=== PATIENT | female | born 1950 | race Caucasian/White ===

== ENCOUNTER 2022-10-30 08:46 | Inpatient (IN) | payer MEDICARE, OTHER ==
[~2022-10-30] VITALS: Ht 182.9 cm; Wt 150.0 kg
[2022-10-30 10:26] LABS: APTT 33 SECONDS (22-32); INR 1.4 INR; PROTHROMBIN TIME 14.6 SECONDS (9.0-12.0)
[2022-10-30 10:28] LABS: ALANINE AMINOTRANSFERASE 30 U/L (12-78); ALBUMIN 2.1 G/DL (3.4-5.0); ALBUMIN/GLOBULIN RATIO 0.4 (1.1-1.5); ALKALINE PHOSPHATASE 237 IU/L (46-116); ASPARTATE AMINO TRANSFERASE 58 U/L (10-37); BILIRUBIN,TOTAL 0.8 MG/DL (0.1-1.0); CALCIUM 8.9 MG/DL (8.5-10.1); TOTAL CARBON DIOXIDE 25.5 MMOL/L (24-32); TOTAL PROTEIN 7.7 G/DL (6.4-8.2)
[2022-10-30 10:37] LABS: LIPASE 81 U/L (73-393); MAGNESIUM 1.8 MG/DL (1.5-2.4); PRO BRAIN NATRIURETIC PEPTIDE 1695 PG/ML (0-125)
[2022-10-30 10:41] LABS: ANION GAP 12 (8-16); BLOOD UREA NITROGEN 23 MG/DL (7-18); BUN/CREATININE RATIO 18.3 (10.0-20.0); C-REACTIVE PROTEIN 26.47 MG/DL (0.0-0.5); CHLORIDE 96 MMOL/L (99-107); CREATININE 1.26 MG/DL (0.40-0.90); GLUCOSE 98 MG/DL (70-104); PHOSPHORUS 3.7 MG/DL (2.3-4.5); POTASSIUM 3.8 MMOL/L (3.5-5.1); SODIUM 133 MMOL/L (135-145); eCRCL 46 ML/MIN; eGFR 42 ML/MIN
[2022-10-30 10:55] LABS: D-DIMER > 35.20 MG/L FEU (0-0.50)
[2022-10-30 11:00] LABS: BASOPHILS % (AUTO) 0.2 % (0-1); EOSINOPHILS % (AUTO) 0.1 % (0-6); HEMATOCRIT 39.2 % (35.0-45.0); HEMOGLOBIN 12.8 g/dl (12.0-16.0); LYMPHOCYTES # (AUTO) 0.3 X10'3 (1.1-4.8); LYMPHOCYTES % (AUTO) 2.3 % (21-51); MEAN CORPUSCULAR HEMOGLOBIN 28.3 PG (27.0-31.0); MEAN CORPUSCULAR HGB CONC 32.7 g/dL (33.0-36.5); MEAN CORPUSCULAR VOLUME 86.5 FL (78-98); MONOCYTES # (AUTO) 0.2 X10'3 (0-0.9); MONOCYTES % (AUTO) 1.4 % (2-12); PLATELET COUNT 158 X10'3 (140-440); RED BLOOD COUNT 4.53 X10'6 (4.20-5.60); RED CELL DISTRIBUTION WIDTH 15.3 % (11.5-14.5); WHITE BLOOD COUNT 11.5 X10'3 (4.5-11.0)
[2022-10-30 11:16] LABS: PLATELET ESTIMATE NORMAL; TOTAL CELLS COUNTED 100
[2022-10-30] MEDS ORDERED: iohexol 350MG/ML 100ml bottle IV ONE (11:31)
[2022-10-30] MEDS ORDERED: normal saline 1000ML IV soln IVB ONE (11:45)
--- NOTE | 2022-10-30 12:16 | NUR ---
lunch relief rn received report from susan rn assuming care at present time. pt returned from radiology via [facility] monitor leads on and functioning. x2 liters ns infusing via pressure bag. pt declined straight cath risks and benefits discussed " i will think about it maybe later but not now"
--- NOTE | 2022-10-30 13:06 | NUR ---
critical lab lactic 4.0 @ 1397
[2022-10-30] MEDS ORDERED: CefTRIAXone 2gm/D5W 50ml BAG 50 ML IV ONE (14:10)
[2022-10-30] MEDS ORDERED: normal saline 1000ML IV soln IV ONE (14:20)
[2022-10-30] MEDS ORDERED: acetaminophen 325mg tablet PO ONE (14:20)
[2022-10-30 14:32] LABS: BILIRUBIN,URINE NEGATIVE (Neg); CLARITY,URINE CLOUDY (Clear); COLOR,URINE YELLOW (Yellow); GLUCOSE, URINE NEGATIVE (Neg); KETONES,URINE TRACE mg/dl (Neg); LEUKOCYTE ESTERASE ,URINE MODERATE (Neg); NITRITES, URINE POSITIVE (Neg); OCCULT BLOOD,URINE MODERATE (Neg); PROTEIN,URINE 30 mg/dl (Neg)
[2022-10-30 14:52] LABS: UA COLLECTION TYPE OTHER
[2022-10-30 14:53] LABS: WBC,URINE TNTC /HPF (0-4)
[2022-10-30 14:54] LABS: BACTERIA,URINE 4+ /HPF (Neg); MUCUS STRANDS NONE SEEN /LPF (Neg); SQUAMOUS EPITHELIAL CELL,UR MODERATE /LPF (FEW)
[2022-10-30] MEDS ORDERED: potassium Cl 40MEQ/1/2NS 520ml 520 ML IV PRN (14:55)
[2022-10-30] MEDS ORDERED: magnesium hydroxide 30ml (MOM) UD suspension PO PRN (14:55)
[2022-10-30] MEDS ORDERED: acetaminophen 325mg tablet PO PRN (14:55)
[2022-10-30] MEDS ORDERED: bisacodyl 10mg suppository rectal RC PRN (14:55)
[2022-10-30] MEDS ORDERED: potassium Cl 20 mEq SR tablet PO PRN (14:55)
[2022-10-30] MEDS ORDERED: mag hydrox/Alum hydrox/simeth 30ml oral suspension PO PRN (14:55)
[2022-10-30] MEDS ORDERED: magnesium 4gm in 100ml NS 100 ML IV PRN (14:55)
[2022-10-30] MEDS ORDERED: magnesium Cl slow-release 64mg tablet PO PRN (14:55)
[2022-10-30] MEDS ORDERED: CARV-50 PO (15:15)
[2022-10-30] MEDS ORDERED: LISI40TA13 PO (15:15)
[2022-10-30] MEDS ORDERED: NEURX-TF PO (15:15)
[2022-10-30] MEDS ORDERED: DIPH25CA83 PO (15:15)
[2022-10-30] MEDS ORDERED: ACET-1131 PO (15:15)
[2022-10-30] MEDS ORDERED: CHOL20002 PO (15:15)
[2022-10-30] MEDS ORDERED: LEVO125T8 PO (15:15)
[2022-10-30] MEDS ORDERED: MAGN500C4 PO (15:15)
[2022-10-30] MEDS ORDERED: HYDR25TA5 PO (15:15)
[2022-10-30] MEDS ORDERED: METF-1203 PO (15:15)
[2022-10-30 15:45] LABS: HEMOGLOBIN A1C 7.3 % (4.5-6.2)
[2022-10-30] MEDS: heparin, porcine 5000 units/ml vial SQ SCH (16:45)
[2022-10-30] MEDS: normal saline 1000ml 1,000 ML IV SCH ×2 (16:45→20:05)
--- NOTE | 2022-10-30 19:16 | NUR ---
report called to floor nurse. pt tx to rm [id number] by tech
--- NOTE | 2022-10-30 20:00 | NUR ---
Pt admitted from ED with Dx of sepsis and FANNY. Pt is A+Ox2-3 with confusion. Hx of dementia, CVA, HTN, DM, Hypothyroidism, and anxiety. Pt is morbidly obese and arrived via gurney and accompanied by , daughter and ER EMT. Pt requires maximum assist with mobility. Wick in place, NS at 100ml/hr, on tele number 5 in SR.
[2022-10-30 20:30] VITALS: BP 138/75; PULSE 95; RESP 29; TEMP 97.4; O2SAT 92
--- NOTE | 2022-10-30 21:18 | NUR ---
Nurse was informed pt's blood culture in the anaerobic bottle results came back with Gram negative rods. Provider Aquilesk notified of results and pt has received rocephin in the ER and will receive rocephin again in the morning. No new orders were given at this time
--- NOTE | 2022-10-30 21:53 | NUR ---
Nurse was informed of blood culture results for areobic blood culture came back with gram negative henrry. Nurse informed Provider Kittrick. no new orders at this time.
[2022-10-30] MEDS ORDERED: vancomycin/NS 1 GM ADD-VANTAGE 250 ML IV SCH (23:00)
--- NOTE | 2022-10-30 23:19 | NUR ---
Pt stated she was having some feelings of anxiety and requested medication to help decrease her anxiety. Nurse called Provider Maru and explained the situation. Provider gave a new order for Ativan 0.5mg PO once. NRBO.
[2022-10-30] MEDS ORDERED: LORazepam 0.5 MG tablet PO PRN (23:20)
[2022-10-31] MEDS: heparin, porcine 5000 units/ml vial SQ SCH ×3 (00:37→16:00)
[2022-10-31 02:00] VITALS: BP 136/69; PULSE 95; RESP 20; TEMP 97.9; O2SAT 95
--- NOTE | 2022-10-31 06:36 | NUR ---
Problems reprioritized. Patient report given, questions answered & plan of care reviewed with Brock ABRAHAM. Pt stable at shift change.
[2022-10-31 07:00] VITALS: BP 141/73; PULSE 87; RESP 31; TEMP 97.7; O2SAT 95
[2022-10-31 07:30] LABS: BASOPHILS % (AUTO) 0.1 % (0-1); EOSINOPHILS # (AUTO) 0.1 X10'3 (0-0.9); EOSINOPHILS % (AUTO) 0.8 % (0-6); HEMATOCRIT 33.7 % (35.0-45.0); HEMOGLOBIN 10.9 g/dl (12.0-16.0); LYMPHOCYTES # (AUTO) 0.6 X10'3 (1.1-4.8); LYMPHOCYTES % (AUTO) 3.9 % (21-51); MEAN CORPUSCULAR HEMOGLOBIN 27.9 PG (27.0-31.0); MEAN CORPUSCULAR HGB CONC 32.3 g/dL (33.0-36.5); MEAN CORPUSCULAR VOLUME 86.4 FL (78-98); MEAN PLATELET VOLUME 8.8 FL (7.4-10.4); MONOCYTES # (AUTO) 0.6 X10'3 (0-0.9); MONOCYTES % (AUTO) 3.7 % (2-12); NEUTROPHILS # (AUTO) 13.7 X10'3 (1.8-7.7); NEUTROPHILS % (AUTO) 91.5 % (42-75); PLATELET COUNT 120 X10'3 (140-440); RED CELL DISTRIBUTION WIDTH 15.4 % (11.5-14.5)
[2022-10-31] MEDS: lisinopril 20mg tablet PO SCH (07:46)
[2022-10-31] MEDS: carVEDilol 12.5mg tablet PO SCH ×2 (07:46→20:23)
[2022-10-31] MEDS: cholecalciferol (vitamin D3) 1,000 unit (25mcg) tablet PO SCH (07:47)
[2022-10-31] MEDS: levoTHYROXINE 125mcg tablet PO SCH (07:47)
[2022-10-31 07:49] LABS: ALANINE AMINOTRANSFERASE 27 U/L (12-78); ALBUMIN 1.7 G/DL (3.4-5.0); ALBUMIN/GLOBULIN RATIO 0.4 (1.1-1.5); ALKALINE PHOSPHATASE 113 IU/L (46-116); ANION GAP 10 (8-16); ASPARTATE AMINO TRANSFERASE 36 U/L (10-37); BILIRUBIN,TOTAL 0.6 MG/DL (0.1-1.0); BLOOD UREA NITROGEN 19 MG/DL (7-18); BUN/CREATININE RATIO 20.2 (10.0-20.0); CHLORIDE 98 MMOL/L (99-107); CHOL/HDL RATIO 8.5 (0.00-4.99); CHOLESTEROL 119 MG/DL (0-200); CREATININE 0.94 MG/DL (0.40-0.90); GLUCOSE 133 MG/DL (70-104); HDL CHOLESTEROL 14 MG/DL (35-60); LDL CHOLESTEROL 30 MG/DL (50-100); MAGNESIUM 1.8 MG/DL (1.5-2.4); PHOSPHORUS 4.2 MG/DL (2.3-4.5); POTASSIUM 3.3 MMOL/L (3.5-5.1); SODIUM 131 MMOL/L (135-145); TOTAL CARBON DIOXIDE 23.3 MMOL/L (24-32); TOTAL PROTEIN 6.4 G/DL (6.4-8.2); TRIGLYCERIDES 201 MG/DL (20-135); eCRCL 62 ML/MIN; eGFR 58 ML/MIN
[2022-10-31] MEDS ORDERED: CefTRIAXone 2gm/D5W 50ml BAG 50 ML IV SCH (08:00)
[2022-10-31] MEDS: [UNRECOGNIZED DRUG - OTHER] PO SCH (08:00)
[2022-10-31 11:31] VITALS: BP 141/69; PULSE 80; RESP 31; TEMP 97.8; O2SAT 90
[2022-10-31] MEDS: cefepime 1GM/NS ADD-VANTAGE 100 ML IV SCH ×2 (12:35→16:00)
[2022-10-31] MEDS ORDERED: normal saline 1000ml 1,000 ML IV SCH (12:40)
[2022-10-31] MEDS: potassium Cl 20 mEq SR tablet PO PRN ×2 (12:45→20:24)
[2022-10-31] MEDS: vancomycin/NS 1 GM ADD-VANTAGE 250 ML IV SCH (12:54)
[2022-10-31] MEDS: LORazepam 1 MG tablet PO PRN ×2 (14:16→20:23)
[2022-10-31 15:00] VITALS: BP 124/65; PULSE 91; RESP 24; TEMP 98.6; O2SAT 92
[2022-10-31] MEDS ORDERED: pneumococcal 23-VAL P-sac vacc 25 mcg/0.5ml vial IMVAC ONE (16:15)
--- NOTE | 2022-10-31 16:47 | NUR ---
Malnutrition consult and diabetes consult: Pt presents with an A1c of 7.3% this admit and a BG of 115-149mg/dl for the past two days. Due to good glucose control and A1c appropriate given advanced age, diabetes nutrition education is not warranted at this time. Per malnutrition screen pt reports 34 or more pound wt loss and a decrease in appetite. Attempted to see pt twice today at bedside for a wt hx and intake hx interview however both time pt was busy with other disciplines. Will reattempt interview at a later time for signs of malnutrition. Addendum: 10/31/22 at [address] Amended: Links added.
[2022-10-31 18:00] VITALS: BP 149/69; PULSE 90; RESP 34; TEMP 98.5; O2SAT 90
[2022-10-31 22:00] VITALS: BP 128/62; PULSE 77; RESP 24; TEMP 98.2; O2SAT 90
[2022-11-01] VITALS (9 sets, daily range): BP systolic 112–153; BP diastolic 58–81; PULSE 79–94; RESP 14–32; TEMP 96.7–97.6; O2SAT 91–94
[2022-11-01] MEDS: heparin, porcine 5000 units/ml vial SQ SCH ×4 (00:24→23:35)
[2022-11-01] MEDS: cefepime 1GM/NS ADD-VANTAGE 100 ML IV SCH ×2 (00:24→08:00)
[2022-11-01] MEDS: vancomycin/NS 1 GM ADD-VANTAGE 250 ML IV SCH ×2 (01:44→12:36)
--- NOTE | 2022-11-01 06:16 | NUR ---
Patient report given, questions answered & plan of care reviewed with Brock ABRAHAM
[2022-11-01 06:24] LABS: BASOPHILS % (AUTO) 0.2 % (0-1); EOSINOPHILS # (AUTO) 0.1 X10'3 (0-0.9); EOSINOPHILS % (AUTO) 0.7 % (0-6); HEMATOCRIT 34.6 % (35.0-45.0); HEMOGLOBIN 10.9 g/dl (12.0-16.0); LYMPHOCYTES # (AUTO) 0.8 X10'3 (1.1-4.8); LYMPHOCYTES % (AUTO) 6.9 % (21-51); MEAN CORPUSCULAR HGB CONC 31.7 g/dL (33.0-36.5); MEAN CORPUSCULAR VOLUME 88.3 FL (78-98); MEAN PLATELET VOLUME 9.1 FL (7.4-10.4); MONOCYTES # (AUTO) 0.7 X10'3 (0-0.9); MONOCYTES % (AUTO) 5.7 % (2-12); NEUTROPHILS # (AUTO) 10.1 X10'3 (1.8-7.7); NEUTROPHILS % (AUTO) 86.5 % (42-75); PLATELET COUNT 92 X10'3 (140-440); RED BLOOD COUNT 3.91 X10'6 (4.20-5.60); RED CELL DISTRIBUTION WIDTH 16.1 % (11.5-14.5); WHITE BLOOD COUNT 11.7 X10'3 (4.5-11.0)
[2022-11-01 07:13] LABS: ALANINE AMINOTRANSFERASE 15 U/L (12-78); ALBUMIN 1.4 G/DL (3.4-5.0); ALBUMIN/GLOBULIN RATIO 0.3 (1.1-1.5); ALKALINE PHOSPHATASE 98 IU/L (46-116); ANION GAP 8 (8-16); ASPARTATE AMINO TRANSFERASE 20 U/L (10-37); BILIRUBIN,TOTAL 0.4 MG/DL (0.1-1.0); BLOOD UREA NITROGEN 26 MG/DL (7-18); BUN/CREATININE RATIO 31.7 (10.0-20.0); CALCIUM 8.1 MG/DL (8.5-10.1); CHLORIDE 98 MMOL/L (99-107); CREATININE 0.82 MG/DL (0.40-0.90); GLUCOSE 155 MG/DL (70-104); PHOSPHORUS 4.1 MG/DL (2.3-4.5); POTASSIUM 4.3 MMOL/L (3.5-5.1); SODIUM 126 MMOL/L (135-145); TOTAL CARBON DIOXIDE 20.1 MMOL/L (24-32); TOTAL PROTEIN 5.9 G/DL (6.4-8.2); eCRCL 71 ML/MIN; eGFR 68 ML/MIN
[2022-11-01] MEDS: carVEDilol 12.5mg tablet PO SCH ×2 (08:00→21:19)
[2022-11-01] MEDS: lisinopril 20mg tablet PO SCH (08:00)
[2022-11-01] MEDS: levoTHYROXINE 125mcg tablet PO SCH (08:00)
[2022-11-01] MEDS: cholecalciferol (vitamin D3) 1,000 unit (25mcg) tablet PO SCH (08:00)
[2022-11-01] MEDS: [UNRECOGNIZED DRUG - OTHER] PO SCH (08:00)
[2022-11-01 10:39] LABS: ABG BASE EXCESS -4.3 mmol/L (-2.0-2.0); ABG HCO3 22.1 mmol/L (22.0-26.0); ABG PCO2 (T) 44.7 mmHg (32.0-45.0); ABG PH (T) 7.309 (7.350-7.450); ABG PO2 (T) 54.8 mmHg (75.0-100.0); ALLEN'S TEST POSITIVE; FCOHb 0.5 % (0.0-3.9); FHHb 9.9 % (0.0-5.0); FLOW 5 L/min; FMetHb 0.1 % (0.0-1.5); FO2Hb 89.5 % (94-97); MODE NASAL CANNULA; PATIENT TEMPERATURE 36.4; TOTAL HEMOGLOBIN 12.1 G/dl (12.0-16.0)
[2022-11-01] MEDS ORDERED: VANCOMYCIN LEVEL IV ONE (11:30)
[2022-11-01 13:16] LABS: VANCOMYCIN,TROUGH 14.9 ug/mL (10.0-20.0)
[2022-11-01] MEDS: CefTRIAXone 2gm/D5W 50ml BAG 50 ML IV SCH (13:29)
[2022-11-01 13:43] LABS: THYROID STIMULATING HORMONE 5.24 ulU/ml (0.34-4.50)
--- NOTE | 2022-11-01 14:44 | NUR ---
PRESSURE ULCER EDUCATION: DEFINITION: A pressure ulcer is an area of skin that breaks down when you stay in one position too long. The constant pressure against the skin reduces the blood flow to that area and the affected tissue dies. CAUSES: "Being bedridden or in a wheelchair "Fragile skin "Having a chronic condition, such as diabetes or vascular disease "Inability to move certain parts of your body without assistance "Older age "Incontinence of urine or stool SYMPTOMS: "A reddened area that DOES NOT turn white when pressed on - this can be the beginning of a pressure ulcer "A blister, deep sore or a crater - these can be advanced pressure ulcers FIRST AID: "Relieve the pressure on this area "Keep the area clean and dry "Call your primary doctor if you see any of the above symptoms "DO NOT massage the area "DO NOT use a donut shaped or ring shaped pillow- these actually interfere with the blood flow and cause complications PREVENTION: "Check for pressure ulcers everyday "Change position at least every two hours to relieve pressure "Use items that help relieve pressure- pillows, sheepskin, foam padding, and powders. "Keep skin clean and dry "Eat healthy well balanced meals "Exercise daily IF YOU SEE ANY OF THESE SYMPTOMS WHILE IN THE HOSPITAL - TELL YOUR NURSE IMMEDIATELY. IF YOU SEE ANY OF THESE SYMPTOMS WHILE AT HOME OR HAVE ANY QUESTIONS OR CONCERNS ABOUT PRESSURE ULCERS - CALL YOUR PRIMARY DOCTOR IMMEDIATELY. Addendum: 11/01/22 at 1445 by Berta Quintanilla LVN Amended: Links added.
[2022-11-01] MEDS: LORazepam 1 MG tablet PO PRN ×2 (14:51→21:35)
--- NOTE | 2022-11-01 15:41 | NUR ---
Malnutrition consult: Pt admit for sepsis probable secondary to UI and acute hypoxemic respirator failure. Per malnutrition screen pt reports 34 or more pound wt loss and a decrease in appetite. Scaled wt this admit of 150kg (330 pounds) Pt seen at bedside states highest of 387 pounds and was unsure of UBW. Pt states "I think I lost about 40-50 pounds" but did not know the last time she weighed herself nor did know where it was taken. Pt states she's had a decreased appetite for the last year. Suspect possible wt loss has been gradual though unclear of time frame due to uncertainty in pt's reporting as pt has hx of dementia and is a poor historian per H&P. Pt physically did not have signs of muscle or fat wasting at this time. Pt does not a minimum of two malnutrition criteria at this time. Per [facility] note 11/01 pt has denuded reddened area to buttock and bilateral lower extremity lymphedema. Pt is currently on a carbohydrate controlled diet with 2L fluid restriction/dry tray per physician with average PO intake of 38% x 4 meals which met 35% of estimated kcal and 31% of estimated protein needs. Recommend liberalizing carbohydrate controlled restriction given pt's geriatric age , appropriate A1c, and good glucose control of 168-173mg/dl for the past two days per EMR. Pt agreeable to ensure vanilla during visit. Recommend Ensure Enlive TIDWM to help better meet estimated needs; notified. No BM yet this admit per EMR. Will continue to monitor and make recommendations as able. Recommendations: 1.continue dry tray/fluid restriction and liberalized carbohydrate controlled restriction due to A1c appropriate given age and good BG control 3.Ensure Enlive Vanilla TIDWM;pending approval in EMR 4.routine bowel care 5.weekly weights Addendum: 11/01/22 at [address] Amended: Links added.
[2022-11-01] MEDS ORDERED: lactose-reduced food (Ensure Enlive) - 237ml bottle PO SCH (18:00)
[2022-11-02] VITALS (15 sets, daily range): BP systolic 104–126; BP diastolic 49–57; PULSE 62–95; RESP 2–72; TEMP 96–97.2; O2SAT 75–97
--- NOTE | 2022-11-02 06:34 | NUR ---
Problems reprioritized. Patient report given, questions answered & plan of care reviewed with August
--- NOTE | 2022-11-02 06:40 | NUR ---
Patient in room U 3027. I have received report from Annia and had the opportunity to ask questions and assume patient care. Addendum: 11/02/22 at 0743 by August Garsia RN Amended: Links added.
[2022-11-02 06:47] LABS: BASOPHILS % (AUTO) 0.3 % (0-1); EOSINOPHILS % (AUTO) 0.2 % (0-6); HEMATOCRIT 33.6 % (35.0-45.0); HEMOGLOBIN 10.8 g/dl (12.0-16.0); LYMPHOCYTES # (AUTO) 0.8 X10'3 (1.1-4.8); LYMPHOCYTES % (AUTO) 6.2 % (21-51); MEAN CORPUSCULAR HGB CONC 32.2 g/dL (33.0-36.5); MEAN CORPUSCULAR VOLUME 86.9 FL (78-98); MEAN PLATELET VOLUME 9.3 FL (7.4-10.4); MONOCYTES # (AUTO) 0.7 X10'3 (0-0.9); MONOCYTES % (AUTO) 5.6 % (2-12); NEUTROPHILS # (AUTO) 11.4 X10'3 (1.8-7.7); NEUTROPHILS % (AUTO) 87.7 % (42-75); PLATELET COUNT 126 X10'3 (140-440); RED BLOOD COUNT 3.86 X10'6 (4.20-5.60); RED CELL DISTRIBUTION WIDTH 15.5 % (11.5-14.5); WHITE BLOOD COUNT 13.1 X10'3 (4.5-11.0)
[2022-11-02 07:16] LABS: ALANINE AMINOTRANSFERASE 20 U/L (12-78); ALBUMIN 1.5 G/DL (3.4-5.0); ALBUMIN/GLOBULIN RATIO 0.3 (1.1-1.5); ALKALINE PHOSPHATASE 93 IU/L (46-116); ANION GAP 7 (8-16); ASPARTATE AMINO TRANSFERASE 24 U/L (10-37); BILIRUBIN,TOTAL 0.5 MG/DL (0.1-1.0); BLOOD UREA NITROGEN 28 MG/DL (7-18); BUN/CREATININE RATIO 34.6 (10.0-20.0); CALCIUM 8.6 MG/DL (8.5-10.1); CHLORIDE 96 MMOL/L (99-107); CREATININE 0.81 MG/DL (0.40-0.90); GLUCOSE 143 MG/DL (70-104); MAGNESIUM 2.1 MG/DL (1.5-2.4); PHOSPHORUS 3.9 MG/DL (2.3-4.5); SODIUM 129 MMOL/L (135-145); TOTAL CARBON DIOXIDE 26.2 MMOL/L (24-32); TOTAL PROTEIN 6.2 G/DL (6.4-8.2); eCRCL 71 ML/MIN; eGFR 69 ML/MIN
[2022-11-02 07:26] LABS: POTASSIUM 4.9 MMOL/L (3.5-5.1)
[2022-11-02] MEDS ORDERED: furosemide 40mg/4ml inj IV ONE (08:00)
[2022-11-02] MEDS: [UNRECOGNIZED DRUG - OTHER] PO SCH (08:00)
[2022-11-02] MEDS: levoTHYROXINE 125mcg tablet PO SCH (08:23)
[2022-11-02] MEDS: lisinopril 20mg tablet PO SCH (08:25)
[2022-11-02] MEDS: heparin, porcine 5000 units/ml vial SQ SCH ×2 (08:25→16:08)
[2022-11-02] MEDS: carVEDilol 12.5mg tablet PO SCH ×3 (08:25→19:56)
[2022-11-02] MEDS: cholecalciferol (vitamin D3) 1,000 unit (25mcg) tablet PO SCH (08:25)
[2022-11-02] MEDS: CefTRIAXone 2gm/D5W 50ml BAG 50 ML IV SCH (08:26)
[2022-11-02] MEDS: LORazepam 1 MG tablet PO PRN (13:57)
--- NOTE | 2022-11-02 18:14 | NUR ---
Problems reprioritized. Patient report given, questions answered & plan of care reviewed with Deb. Addendum: 11/02/22 at 1815 by August Garsia RN Amended: Links added.
--- NOTE | 2022-11-02 18:15 | NUR ---
Patient in room PCU 3027. I have received report from LEIGH Koch and had the opportunity to ask questions and assume patient care.
[2022-11-02] MEDS ORDERED: furosemide 20 MG/2 ML vial IV SCH (20:00)
[2022-11-02] MEDS ORDERED: LORazepam 2 mg/ml vial IV PRN (20:00)
[2022-11-02] MEDS ORDERED: albuterol 2.5 MG/3 ML nebule NEB PRN (20:20)
[2022-11-02] MEDS ORDERED: morphine 2 MG/ML inj. syringe IV PRN (20:50)
[2022-11-02] MEDS: LORazepam 2 mg/ml vial IV PRN ×2 (20:57→22:02)
--- NOTE | 2022-11-03 01:30 | NUR ---
[facility] picked pt up for transport to [facility]
== END 2022-11-03 01:42 | DRG 871 ==
LOC: ER 08:47 → ED HOLD 15:05 → PCU 3S 19:50
PROVIDERS: ADMIT Family Medicine; ATTEND Family Medicine
PROC: B32T1ZZ Computerized Tomography (CT Scan) of Left Pulmonary Artery using Low Osmolar Contrast (ICD-10-PCS; principal; 2022-10-30)
PROC: B3201ZZ Computerized Tomography (CT Scan) of Thoracic Aorta using Low Osmolar Contrast (ICD-10-PCS; 2022-10-30)
PROC: B32S1ZZ Computerized Tomography (CT Scan) of Right Pulmonary Artery using Low Osmolar Contrast (ICD-10-PCS; 2022-10-30)
PROC: BW211ZZ Computerized Tomography (CT Scan) of Abdomen and Pelvis using Low Osmolar Contrast (ICD-10-PCS; 2022-10-30)
PROC: 5A0945A Assistance with Respiratory Ventilation, 24-96 Consecutive Hours, High Flow/Velocity Cannula (ICD-10-PCS; 2022-11-01)
PROC: 3E0234Z Introduction of Serum, Toxoid and Vaccine into Muscle, Percutaneous Approach (ICD-10-PCS; 2022-11-01)
DX: A41.51 Sepsis due to Escherichia coli [E. coli] (principal); G93.41 Metabolic encephalopathy; R65.21 Severe sepsis with septic shock; K85.90 Acute pancreatitis without necrosis or infection, unspecified; J96.21 Acute and chronic respiratory failure with hypoxia; N15.1 Renal and perinephric abscess; Z68.41 Body mass index [BMI] 40.0-44.9, adult; E87.1 Hypo-osmolality and hyponatremia; K86.1 Other chronic pancreatitis; N17.9 Acute kidney failure, unspecified; E66.2 Morbid (severe) obesity with alveolar hypoventilation; N10 Acute pyelonephritis; Z66 Do not resuscitate; I46.9 Cardiac arrest, cause unspecified; I11.0 Hypertensive heart disease with heart failure; I50.9 Heart failure, unspecified; I27.21 Secondary pulmonary arterial hypertension; I27.81 Cor pulmonale (chronic); D64.9 Anemia, unspecified; Z20.822 Contact with and (suspected) exposure to COVID-19; M54.9 Dorsalgia, unspecified; F03.90 Unspecified dementia, unspecified severity, without behavioral disturbance, psychotic disturbance, mood disturbance, and anxiety; D49.512 Neoplasm of unspecified behavior of left kidney; I07.1 Rheumatic tricuspid insufficiency; E11.9 Type 2 diabetes mellitus without complications; F41.9 Anxiety disorder, unspecified; E03.9 Hypothyroidism, unspecified; Z87.442 Personal history of urinary calculi; Z90.710 Acquired absence of both cervix and uterus; Z90.49 Acquired absence of other specified parts of digestive tract; Z88.0 Allergy status to penicillin; Z88.2 Allergy status to sulfonamides; Z79.899 Other long term (current) drug therapy; Z91.199 Patient's noncompliance with other medical treatment and regimen due to unspecified reason; Z74.01 Bed confinement status; Z85.51 Personal history of malignant neoplasm of bladder; Z51.5 Encounter for palliative care
CPT/HCPCS: 36415; 36600; 71045; 71275; 74177; 76770; 80053; 80061; 80202; 81001; 82803; 82948; 83036; 83605; 83690; 83735; 83880; 84100; 84145; 84443; 84484; 85007; 85018; 85025; 85379; 85610; 85730; 86140; 87040; 87077; 87088; 87186; 87811; 93005; 93306; 94640; 94760; 96374; 97110; 97161; 97530; 99291; A6212; A6213; A6250; C1758; G0378; J0692; J0696; J1644; J1940; J2060; J2270; J3370; J3490; J7030; J7040; Q9967